=== PATIENT | male | born 1955 | race Caucasian/White ===

== ENCOUNTER → 2017-02-25 | Outpatient (CLI) | payer OTHER, MEDICARE ==
[~2017-02-25] MED LIST: ASPI-110 PO; ATOR40TA16 PO; CALC0.5C6 PO; GABA400C5 PO; GLIM2TAB PO; INSU1INJ14 SQ; METO50TA PO; NITR0.4S SL; POTA99TA4 PO
[2017-02-25 11:46] LABS: BASOPHIL # 0.1 TH/MM3 (0-0.2); EOSINOPHIL # 0.2 TH/MM3 (0-0.4); EOSINOPHIL % 3.4 % (0.0-4.0); HEMATOCRIT 28.8 % (39.0-51.0); HEMO FLAGS DIFF FINAL; LYMPH % 20.1 % (9.0-44.0); LYMPHOCYTE # 1.2 TH/MM3 (1.0-4.8); MEAN CELL VOLUME 84.2 FL (80.0-100.0); MEAN CORPUSCULAR HEMOGLOBIN 27.3 PG (27.0-34.0); MEAN CORPUSCULAR HGB CONC 32.4 % (32.0-36.0); MONO % 5.6 % (0.0-8.0); NEUT % 69.9 % (16.0-70.0); PLATELET COUNT 137 TH/MM3 (150-450); RED BLOOD COUNT 3.43 MIL/MM3 (4.50-5.90); RED CELL DISTRIBUTION WIDTH 14.8 % (11.6-17.2); WHITE BLOOD COUNT 5.8 TH/MM3 (4.0-11.0)
--- NOTE | 2017-02-26 09:37 | EKG ---
Date Performed: 02/25/2017 Time Performed: 11:27:27 PTAGE: 61 years EKG: SINUS BRADYCARDIA WITH FIRST DEGREE AV BLOCK INFERIOR MYOCARDIAL INFARCTION ABNORMAL ECG NO PREVIOUS TRACING DOCTOR: Octavio Lees Interpretating Date/Time 02/26/2017 09:33:39
== END ==
LOC: PHPRE 11:03
PROVIDERS: ATTEND Orthopaedic Surgery
DX: Z01.810 Encounter for preprocedural cardiovascular examination (principal); Z01.812 Encounter for preprocedural laboratory examination; I44.0 Atrioventricular block, first degree
CPT/HCPCS: 85025; 93005

== ENCOUNTER → 2017-03-05 | Day surgery (SDC) | payer OTHER, MEDICARE ==
[~2017-03-05] VITALS: Ht 175.3 cm; Wt 143.2 kg
[~2017-03-05] MED LIST changes: +ACETAMINOPHEN/HYDROcodone 325 MG/5 MG TAB ONE; +BUPIVACAINE HCL PF 0.5% 30 ML VIAL ONE; +BUPIVACAINE/EPINEPHRINE 0.25% PF 10 ML VIAL ONE; +BUPIVACAINE/EPINEPHRINE 0.25% PF 30 ML VIAL ONE; +CHLORHEXIDINE GLUCONATE 2 % 1 PACK (2 CLOTHS) TOPICAL PRN; +CHLORHEXIDINE GLUCONATE 4% SOLN 120 ML BTL TOPICAL SCH; +DEXT 5%-NACL 0.45% 1000 ML INJ 1,000 ML ONE; +HYDROmorphone HCL PF 1 MG/ML VIAL ONE; +INSULIN HUMAN REGULAR 1,000 UNITS/10 ML VIAL SQ PRN; +LACTATED RINGER'S 1000 ML IV PRN; +LIDOCAINE HCL 2% 50 ML VIAL ONE; +MEPERIDINE HCL 25 MG/ML VIAL ONE; +METOPROLOL TARTRATE 25 MG TAB PO PRN; +MORPHINE SULFATE 4 MG/ML INJ ONE; +POVIDONE IODINE 5% (ANTISEPSIS KIT) 4 APPLICATIONS EACH NARE PRN; +PROPOFOL 200 MG/20 ML AMP IV ONE; +SODIUM CHLORID 0.9% 500 ML IV PRN; +TRIAMCINOLONE ACETONIDE 40 MG/ML VIAL ONE; +VANCOMYCIN 1000 MG/NS 250 ML (for <70 kg) IV SCH; +ceFAZolin 2 GM PREMIX 50 ML IV SCH
[2017-03-05 06:58] VITALS: BP 165/66; PULSE 53; RESP 20; TEMP 98.1; O2SAT 98
[2017-03-05 07:41] LABS: POTASSIUM 4.8 MEQ/L (3.5-5.1)
[2017-03-05 07:44] LABS: BICARBONATE 21.5 MEQ/L (21.0-32.0)
[2017-03-05 08:57] VITALS: PULSE 64
[2017-03-05 09:45] VITALS: TEMP 97.8
[2017-03-05 10:30] VITALS: BP 150/58; PULSE 66; RESP 16; O2SAT 99
--- NOTE | 2017-03-06 23:08 | MP ---
cc: DIANA URENA M.D. DATE OF SURGERY 03/05/[address] Kate Urena PREOPERATIVE DIAGNOSIS Internal derangement of the right knee joint with probable tear medial meniscus. POSTOPERATIVE DIAGNOSIS Tear medial meniscus and tear lateral meniscus. PROCEDURE Subtotal medial and lateral meniscectomy. PROCEDURE IN DETAIL The patient was placed on the operating table in the supine position and the right knee was prepped and draped in the usual sterile fashion. The patient did have an injection to the left heel done prior to the knee joint, which was carried out with cleansing of the left heel with Hibiclens solution followed by insertion of a 22-gauge medial over the calcaneus along its plantar surface and the injection of 1 mL Kenalog, 1 mL of 2% lidocaine, and 1 mL of 0.5% Marcaine was administered. A Band-Aid was applied. Attention was then turned again to the right knee joint where an Esmarch bandage was applied and a pneumatic tourniquet was inflated to 300 followed by 350. The anterolateral portal was used and created for introduction of the double cannula and the joint was distended with lactated Ringer's solution. I did evacuate a few cc of clear yellow fluid. The systematic examination knee joint revealed some fraying of the synovial tissue around the patella, but the articular surface appeared to be satisfactorily preserved. The intercondylar fossa did show some fraying of the anterior and posterior cruciate ligaments which otherwise appeared to be intact. The medial compartment was entered and we did see what appeared to be a previous subtotal medial meniscectomy from the anterior horn to the middle one third with the residual medial meniscus in that area having a longitudinal degenerative type tearing. A resector was placed into the medial compartment through an anteromedial portal and this area of the meniscus was excised. The lateral compartment was examined and showed fraying of the meniscus itself throughout its entire extent which required subtotal lateral meniscectomy by removing the edge and smoothing it afterwards. The joint was thoroughly aspirated and irrigated and then aspirated again. We did encounter considerable oozing of blood from the very beginning with no single origin of blood being found. We also incidentally noted imbedded within the bone and synovial tissue on the lateral side was a small metallic density which may have been left over from previous surgery and this was excised as much as feasible. Following that, I did not encounter the metallic density again. The instruments were removed and the two stab wounds were closed with simple 3-0 nylon. Xeroform gauze was applied after injection through the lateral portal of 1 mL Kenalog, 1 mL of 2% lidocaine, 1 mL of 0.5% Marcaine. A bulky dressing was applied around the knee area following which the tourniquet was deflated and examination of the toes revealed adequate return of circulation. The procedure was tolerated well and the patient had a adequate sponge count, needle count and instrument count x2. The patient was transferred to the recovery room in satisfactory and stable condition. MD PHILIPPE Michel/ /8:48 AM /10:56 PM
== END | disposition home or self-care (01) ==
LOC: PHSDC 06:03 → EDUNIT# 08:00
PROVIDERS: ATTEND Orthopaedic Surgery
DX: S83.241A Other tear of medial meniscus, current injury, right knee, initial encounter (principal); S83.281A Other tear of lateral meniscus, current injury, right knee, initial encounter; I10 Essential (primary) hypertension; I25.2 Old myocardial infarction; E11.9 Type 2 diabetes mellitus without complications; I50.9 Heart failure, unspecified; W19.XXXA Unspecified fall, initial encounter; Z86.73 Personal history of transient ischemic attack (TIA), and cerebral infarction without residual deficits
CPT/HCPCS: 01400; 29880; 36415; 80051; 82948; J0690; J1170; J2175; J2270; J3301; J3370; J7050; J7120